=== PATIENT | female | born 2000 | race American Indian/Alaskan Native ===

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

== ENCOUNTER 2022-01-26 19:36 | Emergency (ER) | payer OTHER ==
[2022-01-26 20:38] VITALS: BP 119/70
== END 2022-01-27 07:50 | disposition left against medical advice (07) ==
LOC: ED 19:36
DX: O26.892 Other specified pregnancy related conditions, second trimester (principal); Z3A.14 14 weeks gestation of pregnancy; R42 Dizziness and giddiness; R06.02 Shortness of breath; R55 Syncope and collapse; Z53.21 Procedure and treatment not carried out due to patient leaving prior to being seen by health care provider